=== PATIENT | female | born 1960 | race Caucasian/White ===

== ENCOUNTER 2020-08-09 11:25 | Day surgery (SDC) | payer OTHER ==
--- OUTSIDE RECORDS SUMMARY | 2020-08-09 11:35 | XMS REPORT | Continuity of Care Document ---
:1960 Author Organization [facility] t Address [address] [place] [address] Care Team Providers Name Role Phone Cristobal BINGHAM Attending Clinician Lab, Fam Pob I Attending Clinician Unavailable Problems This patient has no known problems. Allergies, Adverse Reactions, Alerts This patient has no known allergies or adverse reactions. Medications This patient has no known medications. Procedures This patient has no known procedures. Encounters Start End Encounter Admission Attending Care Care Encounter Source Date/Time Date/Time Type Type Clinicians Facility Department ID 2020-05-29 2020-05-29 Telephone Efrenscottyjuly [facility] [id number] 00:00:00 00:00:00 [facility] [id number] [place] [id number] [facility] [phone] [address] 2020-05-27 2020-05-27 Laboratory Lab, [facility] [id number] 13:56:43 14:16:43 Only [facility]am [facility] [id number] [place] [id number] [facility] [phone] [address] Results This patient has no known results.
[2020-08-09] MEDS ORDERED: CEFAZOLIN/SWI 1gm 1 GM/10 ML SYR ONE (11:58)
[2020-08-09] MEDS ORDERED: Ringers Lactate 1,000 ML IV ONE (11:58)
[2020-08-09] MEDS ORDERED: LIDOCAINE 1% W/EPI 1:100,000 MDV 20 ML VIAL ONE (14:06)
[2020-08-09] MEDS ORDERED: propofoL 200 MG/20 ML VIAL IV ONE (14:28)
[2020-08-09] MEDS ORDERED: LIDOCAINE 2% MPF 5 ML VIAL ONE (14:28)
[2020-08-09] MEDS ORDERED: FENTANYL CITR 100 MCG/2 ML ONE (14:28)
[2020-08-09] MEDS ORDERED: MIDAZOLAM HCL 2 MG/2 ML INJ ONE (14:28)
[2020-08-09] MEDS ORDERED: KETOROLAC 30 MG/ML INJ ONE (15:32)
[2020-08-09 16:04] VITALS: BP 93/53; TEMP 97.1; O2SAT 100
--- NOTE | 2020-08-09 21:06 | OP ---
Date of Procedure: 08/09/2020 Surgeon: Valorie Blevins MD Preoperative Diagnoses: Postmenopausal bleeding, endometrial polyp, retroflexion of the uterus and c ervical stenosis. Postoperative Diagnoses: Postmenopausal bleeding, endometrial polyp, retroflexion of the uterus and cervical stenosis. Procedures Performed: Hysteroscopy, endometrial polypectomy x2, and dilation and curettage using Isrrael Sure. Anesthesia: MAC plus paracervical block. Specimens: Endometrial curettings and polyps. Complications: No complications. Drains: No drains. Condition: Stable. Findings: Anterior wall tortuous polyps x1 and 1 in the right cornual and anterior wall as well. Po lyps removed completely and sent for pathology. Endometrium appeared to be unremarkable. No irregularity or thickening. Indications: A 60-year-old presenting with postmenopausal bleeding. Transvaginal ultrasound showed thickened endometrium. On diagnostic hysteroscopy in the office, there were endometrial polyps. It was difficult to dilate her cervix for operative scope as well as removal of polyps needed a hospital procedure, so she was consented and brought to the OR. Description Of Procedure: After informed consent was verified, she was taken back to OR. A gram of Ancef was given as her uterus had been instrumented in the past week. So, this was given preop. She was taken back to OR, placed in supine fashion on the operating table. MAC was given, placed in a d orsal lithotomy position. Vulva, vagina, and perineum prepped and draped in normal sterile fashion. The anterior lip grasped with 2 Allis clamps after injecting with 1% lidocaine mixed with 1:100,000 epinephrine, 5 cc was injected here. Then, 5 cc each was injected at 4 and 8 o'clock positions of th e cervicovaginal junction for a paracervical block. As the direction of the uterine canal was known, cervix was dilated to 16-Sami. Then, the MyoSure scope was introduced. After priming it, normal saline for distention medium. The canal was entered, traversed directly under vision, and uterine ca vity was entered. The MyoSure Lite device was inserted and the polyps were all removed. Endometrial sampling was also performed of the same device. Scope was removed. Instrument was removed. Instru ment, needle, and sponge counts were correct at the end of the case. The patient tolerated the proce dure well. She was recovered from anesthesia and taken to PACU in stable condition. She will have a 1 week followup appointment with me. She can restart all her home medications for Parkinson's ARSALAN. EVER Voice ID: [id number] Report ID: [id number]
== END 2020-08-09 16:35 | disposition home or self-care (01) ==
LOC: OR 11:25
PROVIDERS: ATTEND Obstetrics & Gynecology
PROC: 0UDB8ZX Extraction of Endometrium, Via Natural or Artificial Opening Endoscopic, Diagnostic (ICD-10-PCS; 2020-08-09)
PROC: 0UB98ZZ Excision of Uterus, Via Natural or Artificial Opening Endoscopic (ICD-10-PCS; principal; 2020-08-09 15:00)
DX: N95.0 Postmenopausal bleeding (principal); N84.0 Polyp of corpus uteri; N88.2 Stricture and stenosis of cervix uteri; Z20.828 Contact with and (suspected) exposure to other viral communicable diseases; G20 Parkinson's disease
CPT/HCPCS: 58558; 88305; U0002; J2704; J3010; J0690; J7120; J2250